=== PATIENT | female | born 1990 | race Caucasian/White ===

== ENCOUNTER 2019-11-05 15:48 | Emergency (ER) | payer OTHER ==
[~2019-11-05] VITALS: Ht 147.3 cm; Wt 42.6 kg
== END 2019-11-05 18:38 | disposition home or self-care (01) ==
LOC: ER 15:48
DX: J06.9 Acute upper respiratory infection, unspecified (principal); B96.0 Mycoplasma pneumoniae [M. pneumoniae] as the cause of diseases classified elsewhere